=== PATIENT | female | born 1980 | race Caucasian/White ===

== ENCOUNTER → 2022-02-08 | Outpatient (CLI) | payer OTHER | LOC: KOH-I 08:15 | DX: M47.817 Spondylosis without myelopathy or radiculopathy, lumbosacral region (principal); M51.26 Other intervertebral disc displacement, lumbar region; M48.061 Spinal stenosis, lumbar region without neurogenic claudication | CPT/HCPCS: 72148 ==

== ENCOUNTER → 2022-03-17 | Outpatient (CLI) | payer OTHER ==
[2022-03-17 12:23] LABS: HEMOGLOBIN 14.6 gm/dl (12.3-15.3); RED BLOOD COUNT 5.41 M/UL (4.00-5.10); WHITE BLOOD COUNT 4.3 K/UL (4.5-11.0)
[2022-03-17 12:43] LABS: BUN/CREATININE RATIO 13 (0-10)
[2022-03-18 07:10] LABS: VITAMIN D, 25-HYDROXY 29.7 ng/mL (30.0-100.0)
[2022-03-21 18:10] LABS: RNP ANTIBODIES 5.7 AI (0.0-0.9); SMITH ANTIBODIES <0.2 AI (0.0-0.9)
[2022-03-21 21:11] LABS: QUANTIFERON MITOGEN VALUE >10.00 IU/mL (.); QUANTIFERON NIL VALUE 0.07 IU/mL (.); QUANTIFERON TB1 AG VALUE 0.08 IU/mL (.); QUANTIFERON TB2 AG VALUE 0.08 IU/mL (.); QUANTIFERON-TB GOLD PLUS Negative (Negative)
== END ==
LOC: MAMO 03-03 15:00
PROVIDERS: Nurse Practitioner Family
DX: L40.9 Psoriasis, unspecified (principal); I10 Essential (primary) hypertension; E53.8 Deficiency of other specified B group vitamins; R79.89 Other specified abnormal findings of blood chemistry; M25.50 Pain in unspecified joint
CPT/HCPCS: 36415; 77063; 77067; 80053; 80061; 82607; 84439; 84443; 85025; 85652; 86038; 86140